=== PATIENT | male | born 1965 | race African-American/Black ===

== ENCOUNTER 2017-03-09 12:11 | Emergency (ER) | payer BC ==
[~2017-03-09] VITALS: Ht 160 cm; Wt 82.6 kg
[2017-03-09 12:59] VITALS: BP 150/112
== END 2017-03-09 13:01 | disposition home or self-care (01) ==
LOC: ER 12:11
DX: R21 Rash and other nonspecific skin eruption (principal); I10 Essential (primary) hypertension
CPT/HCPCS: 99283